=== PATIENT | male | born 1950 | race Caucasian/White ===

== ENCOUNTER 2021-08-26 15:57 | Emergency (ER) | payer OTHER ==
[2021-08-26] MEDS ORDERED: Acetaminophen 500 MG TAB ONE (16:32)
== END 2021-08-26 17:00 | disposition home or self-care (01) ==
LOC: ERS 15:57
DX: S43.51XA Sprain of right acromioclavicular joint, initial encounter (principal); Q60.0 Renal agenesis, unilateral; F17.210 Nicotine dependence, cigarettes, uncomplicated; V87.8XXA Person injured in other specified noncollision transport accidents involving motor vehicle (traffic), initial encounter; Z79.899 Other long term (current) drug therapy